=== PATIENT | male | born 1945 | race Caucasian/White ===

== ENCOUNTER 2021-04-09 08:00 | Inpatient (IN) | payer OTHER ==
[~2021-04-09] VITALS: Ht 230.4 cm; Wt 117.0 kg
[~2021-04-09 08:00] MED LIST: COLL1TAB PO; CYAN500T26 PO; ESOM20CA PO; HYDR25TA4 PO; LEVO112T4 PO; MULT-733 OR; SIMV-13 PO
[2021-04-09] MEDS ORDERED: ceFAZolin 1GM/50ML 100 ML IV ONE (09:21)
[2021-04-09] MEDS ORDERED: TETRACAINE 1% INJ 2 ML VIAL IJ ONE (10:34)
[2021-04-09] MEDS ORDERED: TRANEXAMIC ACID 20 ML ONE (10:34)
[2021-04-09] MEDS ORDERED: VANCOMYCIN HCL 1000 MG VL ONE (10:37)
[2021-04-09] MEDS ORDERED: EPINEPHrine HCL 1 MG/1 ML AMP ONE (10:37)
[2021-04-09] MEDS ORDERED: PHENYLEPHRINE HCL 10 MG/ML VL IV ONE (10:45)
[2021-04-09] MEDS ORDERED: fentaNYL CITRATE 100 MCG/2 ML VL ONE (10:46)
[2021-04-09] MEDS ORDERED: MORPHINE SULF(PF) 0.5MG/ML 10ML VIAL ONE (10:46)
[2021-04-09] MEDS ORDERED: MIDAZOLAM HCL 1MG/1ML-2 ML VIAL ONE ×2 (10:46→11:10)
[2021-04-09] MEDS ORDERED: PROPOFOL 10 MG/ML 20 ML IV ONE (10:53)
[2021-04-09] MEDS ORDERED: DexAMETHasone SOD PHOS 10MG/1ML VIAL INJ ONE (10:53)
[2021-04-09] MEDS ORDERED: ACETAMINOPHEN 325 MG TAB PO PRN (13:45)
[2021-04-09] MEDS ORDERED: HYDROmorphone HCL 2 MG/ML VL IV PRN (13:45)
[2021-04-09] MEDS ORDERED: oxyCODONE HCL 5MG TAB PO PRN ×2 (13:45)
[2021-04-09] MEDS ORDERED: ceFAZolin 1GM 2 GM in D5W 5% 100 ML IV SCH (14:00)
[2021-04-09] MEDS: D5W/LACTATED RINGERS 1,000 ML IV SCH ×2 (15:20→23:51)
[2021-04-09 17:00] VITALS: BP 125/81
[2021-04-09 19:00] VITALS: BP 116/68
[2021-04-09 20:00] VITALS: BP 115/75
[2021-04-09] MEDS: ACETAMINOPHEN 325 MG TAB PO SCH ×2 (20:04→23:51)
[2021-04-09] MEDS: KETOROLAC TROMETH 30 MG/ML 1ML VIAL IV SCH ×2 (20:04→23:51)
[2021-04-09] MEDS: ceFAZolin 1GM 2 GM in D5W 5% 100 ML IV SCH (20:26)
[2021-04-09 21:00] VITALS: BP 108/63
[2021-04-09] MEDS: PREGABALIN 25 MG CAP PO SCH (21:45)
[2021-04-09 22:00] VITALS: BP_SYST 108; BP_SYST 115; BP_DIAS 58; BP_DIAS 75
[2021-04-09 23:00] VITALS: BP 107/54
[2021-04-10] VITALS (21 sets, daily range): BP systolic 101–146; BP diastolic 50–72
[2021-04-10] MEDS: ceFAZolin 1GM 2 GM in D5W 5% 100 ML IV SCH (03:46)
[2021-04-10] MEDS: LEVOTHYROXINE SODIUM 100 MCG TAB PO SCH (06:01)
[2021-04-10] MEDS: KETOROLAC TROMETH 30 MG/ML 1ML VIAL IV SCH ×3 (06:01→18:00)
[2021-04-10] MEDS: ACETAMINOPHEN 325 MG TAB PO SCH ×3 (06:01→18:50)
[2021-04-10] MEDS: D5W/LACTATED RINGERS 1,000 ML IV SCH ×2 (09:45→19:59)
[2021-04-10] MEDS: PANTOPRAZOLE 40 MG TAB PO SCH (10:00)
[2021-04-10] MEDS: HCTZ 25 MG TAB PO SCH (10:00)
[2021-04-10] MEDS: PREGABALIN 25 MG CAP PO SCH ×2 (11:22→21:39)
[2021-04-10] MEDS: CYANOCOBALAMIN 500 MCG TAB PO SCH (11:23)
[2021-04-10] MEDS: ASPirin 81 mg TAB PO SCH ×2 (11:24→21:39)
[2021-04-11] MEDS: ACETAMINOPHEN 325 MG TAB PO SCH ×3 (00:01→12:00)
[2021-04-11 05:00] VITALS: BP 133/70
[2021-04-11] MEDS: KETOROLAC TROMETH 30 MG/ML 1ML VIAL IV SCH ×3 (06:12→12:00)
[2021-04-11] MEDS: LEVOTHYROXINE SODIUM 100 MCG TAB PO SCH (06:12)
[2021-04-11] MEDS: D5W/LACTATED RINGERS 1,000 ML IV SCH (06:12)
[2021-04-11] MEDS: CYANOCOBALAMIN 500 MCG TAB PO SCH (08:02)
[2021-04-11 09:00] VITALS: BP 122/68
[2021-04-11] MEDS: ASPirin 81 mg TAB PO SCH (09:30)
[2021-04-11] MEDS: PREGABALIN 25 MG CAP PO SCH (09:30)
[2021-04-11] MEDS: PANTOPRAZOLE 40 MG TAB PO SCH (09:30)
[2021-04-11] MEDS: HCTZ 25 MG TAB PO SCH (09:30)
[2021-04-11 12:26] VITALS: BP 122/68
[2021-04-11 13:00] VITALS: BP 133/73
== END 2021-04-11 14:13 | disposition home health service (06) | DRG 470 ==
LOC: SUR 08:00 → TELE 13:44 → TELE-CENTR 16:44
PROVIDERS: ADMIT Orthopaedic Surgery; ATTEND Orthopaedic Surgery
PROC: 0SRD0J9 Replacement of Left Knee Joint with Synthetic Substitute, Cemented, Open Approach (ICD-10-PCS; 2021-04-09)
PROC: 3E0T3BZ Introduction of Anesthetic Agent into Peripheral Nerves and Plexi, Percutaneous Approach (ICD-10-PCS; principal; 2021-04-09 11:04)
DX: M17.12 Unilateral primary osteoarthritis, left knee (principal); Z20.822 Contact with and (suspected) exposure to COVID-19
CPT/HCPCS: 73562; 86850; 86900; 86901; 97163; C1713; G0378; J0171; J0690; J1100; J1885; J2250; J2704; J7060